=== PATIENT | male | born 1980 | race Two or more races ===

== ENCOUNTER 2023-07-22 08:12 | Outpatient (OUT) | payer OTHER, SELFPAY ==
[2023-07-22 09:05] LABS: Estimated Average Glucose 197 mg/dL; Glycohemoglobin A1C 8.5 % (4.5-6.2)
[2023-07-22 09:06] LABS: Alanine Aminotransferase 29 U/L (16-63); Albumin Level 3.7 g/dL (3.4-5.0); Alkaline Phosphatase 82 U/L (46-116); Aspartate Amino Transferase 15 U/L (15-37); BUN Creatinine Ratio 12.8; Bilirubin Total 0.4 mg/dL (0.2-1.0); Calcium 8.7 mg/dL (8.5-10.1); Carbon Dioxide 32.5 mmol/L (21.0-32.0); Chloride 102 mmol/L (98-107); Chol HDL Ratio 4.9; Cholesterol 161 mg/dL (<=200); Estimated GFR (African America >60 (>=60); Estimated GFR (Non-African Ame >60 (>=60); Globulin 3.7 g/dL; Glucose 118 mg/dL (74-106); HDL Cholesterol 33 mg/dL (40-60); Potassium 3.5 mmol/L (3.5-5.1); Sodium 143 mmol/L (136-145); Total Protein 7.4 g/dL (6.4-8.2); Triglycerides 159 mg/dL (<=150); VLDL CHOLESTEROL 31.8 mg/dL
== END 2023-07-22 08:13 | disposition home or self-care (01) ==
DX: Z00.00 Encounter for general adult medical examination without abnormal findings (principal); E11.8 Type 2 diabetes mellitus with unspecified complications; I10 Essential (primary) hypertension
CPT/HCPCS: 36415; 80053; 80061; 82043; 83036

== ENCOUNTER 2024-11-08 08:47 | Outpatient (OUT) | payer OTHER, SELFPAY ==
[2024-11-08 09:34] LABS: Alanine Aminotransferase 28 U/L (16-63); Albumin Globulin Ratio 1.0; Albumin Level 3.5 g/dL (3.4-5.0); Alkaline Phosphatase 78 U/L (46-116); Anion Gap 10.5; Aspartate Amino Transferase 18 U/L (15-37); Blood Urea Nitrogen 14.0 mg/dL (7.0-18.0); Calcium 9.0 mg/dL (8.5-10.1); Carbon Dioxide 33.7 mmol/L (21.0-32.0); Chloride 106 mmol/L (98-107); Cholesterol 148 mg/dL (<=200); Estimated GFR (African America >60 (>=60 mL/min/1.73m^2); Estimated GFR (Non-African Ame >60 (>=60 mL/min/1.73m^2); Globulin 3.6 g/dL; Glucose 144 mg/dL (74-106); HDL Cholesterol 35 mg/dL (40-60); Potassium 4.2 mmol/L (3.5-5.1); Sodium 146 mmol/L (136-145); Total Protein 7.1 g/dL (6.4-8.2); Triglycerides 166 mg/dL (<=150); VLDL CHOLESTEROL 33.2 mg/dL
== END 2024-11-08 08:48 | disposition home or self-care (01) ==
LOC: LAB 08:49
PROVIDERS: PCP Family Medicine; Visit Provider Family Medicine
DX: Z00.00 Encounter for general adult medical examination without abnormal findings (principal); E11.9 Type 2 diabetes mellitus without complications
CPT/HCPCS: 36415; 80053; 80061; 82043; 83036